=== PATIENT | female | born 1950 | race American Indian/Alaskan Native ===

== ENCOUNTER 2016-09-15 14:38 | Emergency (ER) | payer SELFPAY ==
[2016-09-15 15:42] LABS: Basophils % (Auto) 2.9 % (0.0-1.8); Eosinophils % (Auto) 0.4 % (0.0-4.3); Hematocrit 40.4 % (30.3-42.9); Hemoglobin 13.6 gm/dl (10.1-14.3); Mean Corpuscular HGB Conc 34 % (30-34); Mean Corpuscular Hemoglobin 29 pg (28-32); Mean Corpuscular Volume 87 fl (79-97); Platelet Count 215 K/mm3 (140-440); Red Blood Count 4.62 M/mm3 (3.65-5.03); Red Cell Distribution Width 13.4 % (13.2-15.2)
[2016-09-15 15:59] LABS: Calcium 9.9 mg/dL (8.4-10.2); Chloride 102.6 mmol/L (98-107); Potassium 3.5 mmol/L (3.6-5.0)
--- NOTE | 2016-09-15 16:55 | Emergency Department Report ---
ED Altered Mental Status HPI - General Chief Complaint: Altered Mental Status Stated Complaint: POSS PSYCH/ POSS MED REFILL Time Seen by Provider: 09/15/16 16:10 Source: patient Mode of arrival: Wheelchair Limitations: No Limitations - History of Present Illness Initial Comments: This is a 65-year-old female who presents to the ED with psychosis. She comes via EMS. History is from the patient as well as from her daughter and ex- . According to the daughter and ex-, patient has long-standing history of psychosis. She is on some type of antipsychotic medication. It is normal for her to hear voices. She usually is able to control these quite well when she is compliant with her medications. The daughter indicates approximately every 6 months she gets in a situation where she stops taking her medications due to. Due to her poor compliance she begins having bizarre behavior hearing increased voices. The daughter indicates that the this is been going on for about the last week or so. She has been going around town and somewhat erratic fashion. She was seen at [facility] just a few days ago. She was ultimately was diagnosed with UTI and was not addressed regarding her psychosis at that time. The daughters are very concerned that the patient needs to be admitted to the hospital for psychiatric reasons. And pressure compliance on her medications. According to the , there was an event at [facility] today where the patient became very agitated and started yelling. He'll family called EMS for transport to our facility. According to the patient she does hear voices. She states at times they do tell her herself. She states she has no plan on R when necessary on the voices. She does report the voices are numerous and have different attitudes. Some are mean. Some are pleasant. She reports currently the voices just background noise for her. She does endorse lower pelvic pain. She does indicate she was diagnosed with UTI at [facility] a few days ago. She does not levels whether or not she has been compliant on her antibiotic for this Unable to tell me her medication list at this time. - Related Data Allergies Allergy/AdvReac Type Severity Reaction Status Date / Time No Known Allergies Allergy Unverified 09/15/16 15:06 ED Review of Systems ROS: Stated complaint: POSS PSYCH/ POSS MED REFILL Other details as noted in HPI Constitutional: denies: chills, fever Eyes: denies: eye pain, eye discharge, vision change ENT: denies: ear pain, throat pain Respiratory: denies: cough, shortness of breath, wheezing Cardiovascular: denies: chest pain, palpitations Endocrine: no symptoms reported Gastrointestinal: denies: abdominal pain, nausea, diarrhea Genitourinary: dysuria, other (pelvic pain). denies: urgency, discharge Musculoskeletal: denies: back pain, joint swelling, arthralgia Skin: denies: rash, lesions Neurological: denies: headache, weakness, paresthesias Psychiatric: auditory hallucinations, suicidal thoughts (none currently). denies: anxiety, depression Hematological/Lymphatic: denies: easy bleeding, easy bruising ED Past Medical Hx - Past Medical History Previous Medical History?: Yes ED Physical Exam - General Limitations: No Limitations General appearance: alert, in no apparent distress, other (calm) - Head Head exam: Present: atraumatic, normocephalic - Eye Eye exam: Present: normal appearance, PERRL, EOMI. Absent: scleral icterus - ENT ENT exam: Present: normal orophraynx, mucous membranes moist - Neck Neck exam: Present: normal inspection. Absent: tenderness, lymphadenopathy, thyromegaly - Respiratory Respiratory exam: Present: normal lung sounds bilaterally, other. Absent: respiratory distress, wheezes, rales - Cardiovascular Cardiovascular Exam: Present: regular rate, normal rhythm. Absent: systolic murmur, diastolic murmur, rubs, gallop - GI/Abdominal GI/Abdominal exam: Present: soft, tenderness (mild in suprapubic region), normal bowel sounds - Extremities Exam Extremities exam: Present: normal inspection - Back Exam Back exam: Present: normal inspection - Neurological Exam Neurological exam: Present: alert, oriented X3 - Psychiatric Psychiatric exam: Present: agitated, other (somewhat labile, flight of ideas) - Skin Skin exam: Present: warm, dry, intact, normal color. Absent: rash ED Course Vital Signs 09/15/16 15:06 Temperature 99.0 F Pulse Rate 102 H Respiratory 20 Rate Blood Pressure 176/151 O2 Sat by Pulse 100 Oximetry - Reevaluation(s) Reevaluation #1: 09/15/16 17:10 Patient clearly endorses auditory hallucinationshere. She does appear to be a threat to herself and others that she's been driving on the road and somewhat psychotic state. We'll trial her on Zyprexa here. Patient is not able to provide me with any medications. This is a little bit challenging from this standpoint. A B she will be more lucid with the antipsychotic on board. With treat her empirically for probable UTI as well. Still waiting for the patient provided urine sample. Patient has been placed under 1013. Awaiting crisis evaluation and disposition per crisis. Reevaluation #2: 09/15/16 19:34 Patient is calm at this time. She still not very clear or organized however. She is not able to recall her primary medications. Still awaiting crisis evaluation for placement. Urinalysis pending as well. - Lab Data Result diagrams: 09/15/16 15:33 09/15/16 15:33 Lab Results 09/15/16 09/15/16 09/15/16 Range/Units 15:15 15:28 15:33 WBC (4.5-11.0) K/mm3 RBC (3.65-5.03) M/mm3 Hgb (10.1-14.3) gm/dl Hct (30.3-42.9) % MCV (79-97) fl MCH (28-32) pg MCHC (30-34) % RDW (13.2-15.2) % Plt Count (140-440) K/mm3 Lymph % (Auto) (13.4-35.0) % Conway % (Auto) (0.0-7.3) % Eos % (Auto) (0.0-4.3) % Baso % (Auto) (0.0-1.8) % Lymph # (1.2-5.4) K/mm3 Conway # (0.0-0.8) K/mm3 Eos # (0.0-0.4) K/mm3 Baso # (0.0-0.1) K/mm3 Seg Neutrophils % (40.0-70.0) % Seg Neutrophils # (1.8-7.7) K/mm3 Sodium 141 (137-145) mmol/L Potassium 3.5 L (3.6-5.0) mmol/L Chloride 102.6 (98-107) mmol/L Carbon Dioxide 21 L (22-30) mmol/L Anion Gap 21 mmol/L BUN 8 (7-17) mg/dL Creatinine 1.0 (0.7-1.2) mg/dL Estimated GFR 56 ml/min BUN/Creatinine Ratio 8.00 % Glucose 102 H (65-100) mg/dL POC Glucose 113 H (70-105) Calcium 9.9 (8.4-10.2) mg/dL Plasma/Serum Alcohol < 0.01 (0-0.07) gm% 09/15/16 Range/Units 15:33 WBC 6.0 (4.5-11.0) K/mm3 RBC 4.62 (3.65-5.03) M/mm3 Hgb 13.6 (10.1-14.3) gm/dl Hct 40.4 (30.3-42.9) % MCV 87 (79-97) fl MCH 29 (28-32) pg MCHC 34 (30-34) % RDW 13.4 (13.2-15.2) % Plt Count 215 (140-440) K/mm3 Lymph % (Auto) 13.1 L (13.4-35.0) % Conway % (Auto) 11.4 H (0.0-7.3) % Eos % (Auto) 0.4 (0.0-4.3) % Baso % (Auto) 2.9 H (0.0-1.8) % Lymph # 0.8 L (1.2-5.4) K/mm3 Conway # 0.7 (0.0-0.8) K/mm3 Eos # 0.0 (0.0-0.4) K/mm3 Baso # 0.2 H (0.0-0.1) K/mm3 Seg Neutrophils % 72.2 H (40.0-70.0) % Seg Neutrophils # 4.3 (1.8-7.7) K/mm3 Sodium (137-145) mmol/L Potassium (3.6-5.0) mmol/L Chloride (98-107) mmol/L Carbon Dioxide (22-30) mmol/L Anion Gap mmol/L BUN (7-17) mg/dL Creatinine (0.7-1.2) mg/dL Estimated GFR ml/min BUN/Creatinine Ratio % Glucose (65-100) mg/dL POC Glucose (70-105) Calcium (8.4-10.2) mg/dL Plasma/Serum Alcohol (0-0.07) gm% Critical care attestation.: If time is entered above; I have spent that time in minutes in the direct care of this critically ill patient, excluding procedure time. ED Disposition Clinical Impression: Psychosis Qualifiers: Psychosis type: other Qualified Code(s): F28 - Other psychotic disorder not due to a substance or known physiological condition UTI (urinary tract infection) Qualifiers: Urinary tract infection type: acute cystitis Hematuria presence: without hematuria Qualified Code(s): N30.00 - Acute cystitis without hematuria Disposition: DC/TX PSY HOSP/PSY UNIT Is pt being admited?: No Does the pt Need Aspirin: No Condition: Stable Time of Disposition: 17:11
[2016-09-15] MEDS ORDERED: BACTRIM DS PO ONE (17:03)
[2016-09-15 17:36] LABS: Urine Drugs of Abuse Note Disclamer
[2016-09-15 17:58] LABS: Bilirubin,Urine NEG (Negative); Blood,Urine NEG (Negative); Ketones,Urine 80 mg/dL (Negative); Leukocyte Esterase,Urine NEG (Negative); Mucus,Urine FEW /HPF; Nitrite,Urine NEG (Negative); Protein,Urine <15 mg/dL mg/dL (Negative); Urobilinogen,Urine < 2.0 mg/dL (<2.0)
[2016-09-16] MEDS: BACTRIM DS PO SCH ×2 (06:09→11:06)
--- NOTE | 2016-09-16 09:02 | Consultation ---
History of Present Illness - Reason for Consult Consult date: 09/16/16 Reason for consult: Mental Health Evaluation Requesting physician: DEANNA STOVALL - Chief Complaint Chief complaint: "I don't feel right" - History of Present Psychiatric Illness This is a 65-year-old AA female who presents to the ED with psychosis. Today patient was cooperative, calm, with a circumstantial thought process. She could not give me insight on the incident that brought here to [facility]. She states that she remember going to [facility] with her ex-, but do not remember yelling and getting agitated. She could not tell me if she has taken psy medications in the past. She did say that Aranda is familiar with psy hx where she is seen by a clinical psychologist. Patient could recall the current and previous president , but could not remember all the numbers I wanted her to recall (4, 7, 8). She recalled 2 in the correct order. She spelled WORLD backwards correctly with slight hesitation. She states that she hear her aunt voice in her right ear currently. She states that she has been experiencing AH's for the past year. She stated most of the voices are muffled noises. She denies SI/HI's or VH's at this time. Medications and Allergies Allergies Allergy/AdvReac Type Severity Reaction Status Date / Time No Known Allergies Allergy Unverified 09/15/16 15:06 Active Meds: Active Medications Trimethoprim/Sulfamethoxazole (Bactrim Ds) 1 each PO Q12HR IVANIA Stop: 09/18/16 10:01 Last Admin: 09/16/16 06:09 Dose: Not Given Past psychiatric history - Past Medical History Past Medical History: other (Patient could not say) Past Surgical History: Other (Patient could not recall) - past Psychiatric treatment and history psychiatric treatment history: Inpatient in [place]. 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) Mental Status Exam - Vital signs Last Vital Signs Temp 98.7 F 09/16/16 08:40 Pulse 103 H 09/16/16 08:40 Resp 16 09/16/16 08:40 BP 134/98 09/16/16 08:40 Pulse Ox 96 09/16/16 08:40 - Exam Narrative exam: ROS (+) AH's, (-) Depression Orientation: place, person Affect: flat Mood: congruent with affect Thought content: paranoia Thought Process: Circumstantial Perceptions: auditory Speech: normal rate and pattern Concentration: focused Motor activity: other (Lying in bed) Level of consciousness: alert Memory: Recent Impaired Sleep Symptoms: None ("I am sleeping well") Interaction: cooperative Mini mental status exam(if necessary): 24-30 Results Result Diagrams: 09/15/16 15:33 09/15/16 15:33 Abnormal lab results 09/15/16 09/15/16 09/15/16 Range/Units 15:15 15:33 15:33 Lymph % (Auto) 13.1 L (13.4-35.0) % [place] % (Auto) 11.4 H (0.0-7.3) % Baso % (Auto) 2.9 H (0.0-1.8) % Lymph # 0.8 L (1.2-5.4) K/mm3 Baso # 0.2 H (0.0-0.1) K/mm3 Seg Neutrophils % 72.2 H (40.0-70.0) % Potassium 3.5 L (3.6-5.0) mmol/L Carbon Dioxide 21 L (22-30) mmol/L Glucose 102 H (65-100) mg/dL POC Glucose 113 H (70-105) All other labs normal. Assessment and Plan Assessment and plan: Impression: This is a 65-year-old AA female who presents to the ED with psychosis. Today patient was cooperative, calm, with a circumstantial thought process. She could not give me insight on the incident that brought here to [facility]. Recommendation/Plan: Continue 1013 with possible placement to inpatient psy services or IOP/PHP. Collateral information pending communication with daughter.
--- NOTE | 2016-09-16 10:40 | Admit Criteria Form ---
Admission Criteria Documentation: PSYCHIATRIC DISORDERS Clinical Indications for Inpatient Care (Place 'X' for any and all applicable criteria): Ongoing inpatient care may be needed for ANY ONE of the following(1)(2)(3)(4)(6) (7)(8): [ ]I. Danger to self or others not manageable at lower level of care. [ ]II. Grave disability (eg, inability to perform self care necessary at lower level of care) [ ]III. Agitation or inappropriate behavior interfering with care for primary condition (eg, attempting to discontinue lines or drains prematurely, unable to cooperate with respiratory care) [X ]IV. Severe disability or disorder indicated by ALL of the following: [X ]a) Severe behavioral health disorder-related symptoms or condition indicated by ANY ONE of the following: [ ]i) Severe problem with cognition, memory, judgment, or impulse control [X ]ii) Severe clinical manifestations (eg, hallucinations , delusions, other acute psychotic symptoms, leanna, extreme agitation or anxiety) [ X]b) Patient management at lower level of care is not feasible until acute intervention or modification is initiated. Extended stay beyond goal length of stay for the primary condition may be indicated when ANY ONE of the following is present: (1)(2)(3)(4): [ ]a) Patient is a danger to self or others and not manageable at lower level of care. [ ]b) Behavior crisis management, including physical or chemical restraints, is required and is not available at a lower level of care. [ ]c) Behavioral symptoms (e.g., agitation, somnolence, inappropriate behavior) are present, and are not manageable at a lower level of care. [ ]d) Patient cannot understand follow-up treatment and crisis plan. [ ]e) Provider and supports are not sufficiently available at lower level of care. [ ]f) Patient cannot participate (e.g., verify absence of plan for harm) and is in needed of monitoring. The original for; to (do)[facility] [employer] content created by [facility] [employer] has been revised. The portions of the content which have been revised are identified through the use of italic text or in bold, and [employer] [facility] [employer] has neither reviewed nor approved the modified material. All other unmodified content is copyright [facility] [employer]. Please see references footnoted in the original [facility] edition 2016 Admission Criteria Met: Yes
--- NOTE | 2016-09-16 14:47 | Event Note ---
Date: 09/16/16 Vital signs are reviewed and appreciated. Psychiatric consultation is appreciated. Patient is awaiting psychiatric placement Vital Signs 09/15/16 09/15/16 09/15/16 15:06 18:15 18:53 Temperature 99.0 F 98.1 F Pulse Rate 102 H 105 H Respiratory 20 18 18 Rate Blood Pressure 176/151 Blood Pressure 159/76 [Left] O2 Sat by Pulse 100 95 Oximetry 09/16/16 09/16/16 09/16/16 06:00 08:40 10:00 Temperature 98.2 F 98.7 F 98.7 F Pulse Rate 82 103 H 103 H Respiratory 18 16 16 Rate Blood Pressure Blood Pressure 148/92 134/98 134/98 [Left] O2 Sat by Pulse 97 96 96 Oximetry
[2016-09-16 21:10] VITALS: BP 119/77
== END 2016-09-16 21:10 ==
LOC: EEVIPCON 14:38 → ED 14:38
DX: F28 Other psychotic disorder not due to a substance or known physiological condition (principal); N30.00 Acute cystitis without hematuria
CPT/HCPCS: 36415; 80048; 80307; 81001; 82962; 85025; 99285; G0480; 80320